=== PATIENT | female | born 1945 | race Caucasian/White ===

== ENCOUNTER 2020-06-24 19:30 | Inpatient (IN) ==
[2020-06-24 20:13] LABS: Basophils % 0.2 %; Eosinophils % 0.2 %; Hemoglobin 10.9 g/dL (11.5-15.4); Lymphocytes # 1.6 K/mcL (0.6-4.6); Lymphocytes % 19.2 %; Mean Corpuscular HGB Conc 32.1 g/dL (31.6-35.5); Mean Corpuscular Hemoglobin 29.9 pg (28.0-33.3); Mean Corpuscular Volume 93.2 fL (83.0-100.0); Mean Platelet Volume 9.1 fL (9.4-12.4); Monocytes # 0.6 K/mcL (0.0-1.3); Neutrophils # 5.9 K/mcL (1.6-8.9); Platelet Count 228 K/mcL (140-400); Red Blood Count 3.65 M/mcL (3.82-4.97); Red Cell Distribution Width 15.1 % (11.5-14.5); Segmented Neutrophils % 72.4 %; White Blood Count 8.1 K/mcL (4.3-11.1)
[2020-06-24 20:16] LABS: INR 1.1; Prothrombin Time 12.1 Seconds (9.4-12.1)
[2020-06-24 20:18] LABS: Activated Partial Thrombo Time 32.1 Seconds (26.0-36.0)
[2020-06-24 20:29] LABS: Alanine Aminotransferase 21 Units/L (7-52); Albumin 3.5 g/dL (3.5-5.7); Albumin/Globulin Ratio 1.1 (1.1-2.2); Alkaline Phosphatase 76 Units/L (34-104); Aspartate Amino Transferase 17 Units/L (13-39); BUN/Creatinine Ratio 14 (6-26); Bilirubin,Direct 0.1 mg/dL (0.0-0.2); Bilirubin,Indirect 0.3 mg/dL (0.0-1.0); Bilirubin,Total 0.4 mg/dL (0.3-1.0); Blood Urea Nitrogen 44 mg/dL (8-23); Calcium 9.9 mg/dL (8.6-10.3); Carbon Dioxide 22 mEq/L (23-29); Chloride 102 mEq/L (98-107); Globulin 3.1 g/dL (2.4-3.5); Glucose 151 mg/dL (70-105); Lipase 24 Units/L (11-82); Osmolality,Calculated 294 (280-300); Potassium 4.5 mEq/L (3.5-5.1); Sodium 135 mEq/L (136-145); Total Protein 6.6 g/dL (6.4-8.9); eGFR For African Americans 17 (> 60); eGFR For Non-African Americans 14 (> 60)
[2020-06-24 21:18] LABS: Amorphous Sediment,Urine Few per hpf (None-Few); Bacteria,Urine Moderate per hpf (None-Few); Bilirubin,Urine Negative (Negative); Blood,Urine Negative (Negative); Clarity,Urine Turbid (Clear); Color,Urine Light-Yellow (Yellow); Glucose,Urine (UA) Normal (Normal); Ketones,Urine Negative (Negative); Leukocyte Esterase,Urine Moderate (Negative); Nitrite,Urine Negative (Negative); PH,Urine 5.5 pH Units (5.0-8.0); Protein,Urine 50 mg/dL (Neg-Trace); RBC,Urine 0-3 per hpf (0-3); Specific Gravity,Urine 1.013 (1.010-1.025); Squamous Epithelial Cell,Urine Few per hpf (None-Few); Urobilinogen,Urine Normal (Normal)
[2020-06-24 21:44] LABS: Troponin I < 0.03 ng/mL (< 0.04)
[2020-06-24] MEDS ORDERED: Piperacillin/Tazobactam 3.375 GM in 0.9 % Sodium Chloride Mini Bag 100 ML IVPB ONE (22:15)
[2020-06-24] MEDS ORDERED: Pantoprazole 40 MG VIAL IVP ONE (22:34)
[2020-06-24] MEDS ORDERED: 0.9 % Sodium Chloride 1,000 ML IVC ONE (22:38)
[2020-06-25 00:48] LABS: Adenovirus Not Detected (Not Detect); Coronavirus 229E Not Detected (Not Detect); Coronavirus HKU1 Not Detected (Not Detect); Coronavirus NL63 Not Detected (Not Detect); Coronavirus OC43 Not Detected (Not Detect)
[2020-06-25 00:49] LABS: Bordetella Pertussis Not Detected (Not Detect); Chlamydophila pneumoniae Not Detected (Not Detect); Human Metapneumovirus Not Detected (Not Detect); Human Rhinovirus/Enterovirus Not Detected (Not Detect); Influenza A Subtype 2009 H1 Not Detected (Not Detect); Influenza B Not Detected (Not Detect); Mycoplasma pneumoniae Not Detected (Not Detect); Parainfluenza Virus 1 Not Detected (Not Detect); Parainfluenza Virus 2 Not Detected (Not Detect); Parainfluenza Virus 3 Not Detected (Not Detect); Parainfluenza Virus 4 Not Detected (Not Detect); Respiratory Syncytial Virus Not Detected (Not Detect)
[2020-06-25 01:07] LABS: Adenovirus F 40/41 PCR Not detected (Not detect); Astrovirus PCR Not detected (Not detect); C.difficile Toxin A/B Gene PCR Not detected (Not detect); Campylobacter by PCR Not detected (Not detect); Cryptosporidium by PCR Not detected (Not detect); Cyclospora cayetanensis PCR Not detected (Not detect); E. coli O157 by PCR Not detected (Not detect); Entamoeba histolytica PCR Not detected (Not detect); Enteroaggregative E.coli(EAEC) Not detected (Not detect); Enteropathogenic E.coli(EPEC) Not detected (Not detect); Enterotoxigenic E.coli (ETEC) Not detected (Not detect); Giardia lamblia PCR Not detected (Not detect); Norovirus GI/GII PCR Not detected (Not detect); Plesiomonas shigelloides PCR Not detected (Not detect); Rotavirus A PCR Not detected (Not detect); Salmonella PCR Not detected (Not detect); Sapovirus PCR Not detected (Not detect); Shig/EnteroinvasiveE coli EIEC Not detected (Not detect); Shigalike tox-prod E coli STEC Not detected (Not detect); Vibrio PCR Not detected (Not detect); Vibrio cholerae PCR Not detected (Not detect); Yersinia enterocolitica PCR Not detected (Not detect)
[2020-06-25] MEDS ORDERED: Naloxone 0.4 MG/ML INJ IVP PRN (01:17)
[2020-06-25] MEDS: 0.9 % Sodium Chloride 1,000 ML IVC SCH ×3 (02:23→19:39)
[2020-06-25 05:39] LABS: Potassium 5.1 mEq/L (3.5-5.1)
[2020-06-25 05:40] LABS: Albumin 2.8 g/dL (3.5-5.7); Albumin/Globulin Ratio 1.1 (1.1-2.2); Bilirubin,Total 0.5 mg/dL (0.3-1.0); Globulin 2.5 g/dL (2.4-3.5); Total Protein 5.3 g/dL (6.4-8.9)
[2020-06-25 06:47] LABS: Basophils % 0.3 %; Eosinophils % 0.5 %; Hematocrit 29.5 % (35.3-44.9); Hemoglobin 9.7 g/dL (11.5-15.4); Immature Granulocytes % 0.8 % (0-4); Lymphocytes # 1.3 K/mcL (0.6-4.6); Lymphocytes % 19.6 %; Mean Corpuscular HGB Conc 32.9 g/dL (31.6-35.5); Mean Corpuscular Hemoglobin 30.2 pg (28.0-33.3); Mean Corpuscular Volume 91.9 fL (83.0-100.0); Monocytes # 0.5 K/mcL (0.0-1.3); Monocytes % 7.5 %; Neutrophils # 4.7 K/mcL (1.6-8.9); Platelet Count 204 K/mcL (140-400); Red Blood Count 3.21 M/mcL (3.82-4.97); Red Cell Distribution Width 15.2 % (11.5-14.5); Segmented Neutrophils % 71.3 %; White Blood Count 6.6 K/mcL (4.3-11.1)
[2020-06-25] MEDS ORDERED: Dextrose Gel 15 GM/37.5 ML TUBE PO PRN ×2 (07:43)
[2020-06-25] MEDS ORDERED: *HR* Dextrose 50 % in Water (Vial) 50 ML VIAL IVP PRN (07:43)
[2020-06-25] MEDS ORDERED: D5% in Water 1,000 ML IVC PRN (07:43)
[2020-06-25] MEDS ORDERED: Piperacillin/Tazobactam 3.375 GM in 0.9 % Sodium Chloride Mini Bag 100 ML IVPB SCH ×2 (08:00→10:00)
[2020-06-25] MEDS ORDERED: Aspirin 81 MG TAB.CHEW PO SCH (09:00)
[2020-06-25] MEDS: Gabapentin 100 MG CAPSULE PO SCH (09:28)
[2020-06-25] MEDS: cefTRIAXone 1,000 MG in Water for inj. (sterile) 10 ML IVP SCH (09:28)
[2020-06-25] MEDS: Verapamil ER (24 HR) 180 MG TABLET.ER PO SCH (09:28)
[2020-06-25 10:02] LABS: Folate > 22.3 ng/mL (3.0-16.0); Vitamin B12 591 pg/mL (250-1100)
[2020-06-25 11:50] LABS: Bacteria,Urine Few per hpf (None-Few); Bilirubin,Urine Negative (Negative); Blood,Urine Negative (Negative); Clarity,Urine Clear (Clear); Color,Urine Light-Yellow (Yellow); Glucose,Urine (UA) Normal (Normal); Ketones,Urine Negative (Negative); Leukocyte Esterase,Urine Trace (Negative); Mucus,Urine Few per lpf (None-Few); Nitrite,Urine Negative (Negative); Protein,Urine 30 mg/dL (Neg-Trace); RBC,Urine 0-3 per hpf (0-3); Sodium, Urine 59.2 mEq/L; Specific Gravity,Urine 1.011 (1.010-1.025); Squamous Epithelial Cell,Urine Few per hpf (None-Few); Urobilinogen,Urine Normal (Normal)
[2020-06-25] MEDS ORDERED: Insulin LISPRO 300 UNITS/3 ML VIAL SQ SCH (12:00)
[2020-06-25 12:15] LABS: Thyroid Stimulating Hormone 0.848 mcIU/mL (0.340-5.600)
[2020-06-25] MEDS: Insulin LISPRO 300 UNITS/3 ML VIAL SQ SCH ×2 (12:31→17:36)
[2020-06-25 14:40] LABS: Hematocrit 31.6 % (35.3-44.9); Hemoglobin 9.9 g/dL (11.5-15.4)
[2020-06-25] MEDS: Iron Sucrose Complex 200 MG in 0.9 % Sodium Chloride 100 ML IVPB SCH (17:36)
[2020-06-25] MEDS: Pantoprazole 40 MG VIAL IVP SCH (17:37)
[2020-06-25] MEDS ORDERED: NON-FORMULARY MEDICATION 1 EACH EACH (Ezetimibe [Zetia] 10 MG) PO SCH (21:00)
[2020-06-26 01:16] LABS: Acinetobacter baumannii by PCR Not Detected (Not Detect); Candida albicans by PCR Not Detected (Not Detect); Candida glabrata by PCR Not Detected (Not Detect); Candida krusei by PCR Not Detected (Not Detect); Candida parapsilosis by PCR Not Detected (Not Detect); Candida tropicalis by PCR Not Detected (Not Detect); Enterobacter cloacae Cmplx PCR Not Detected (Not Detect); Enterobacteriaceae by PCR Not Detected (Not Detect); Enterococcus by PCR Not Detected (Not Detect); Escherichia coli by PCR Not Detected (Not Detect); Klebsiella oxytoca by PCR Not Detected (Not Detect); Klebsiella pneumoniae by PCR Not Detected (Not Detect); Proteus by PCR Not Detected (Not Detect); Pseudomonas aeruginosa by PCR Not Detected (Not Detect); Serratia marcescens by PCR Not Detected (Not Detect); Staphylococcus aureus by PCR Not Detected (Not Detect); Staphylococcus by PCR DETECTED (Not Detect); Streptococcus agalactiae(B)PCR Not Detected (Not Detect); Streptococcus by PCR Not Detected (Not Detect); Streptococcus pneumoniae PCR Not Detected (Not Detect); Streptococcus pyogenes (A) PCR Not Detected (Not Detect); mecA Methicillin-Resist Gene Not Detected (Not Detect)
[2020-06-26 01:22] LABS: Basophils % 0.6 %; Eosinophils # 0.1 K/mcL (0.0-0.6); Eosinophils % 1.4 %; Hemoglobin 9.4 g/dL (11.5-15.4); Immature Granulocytes % 1.4 % (0-4); Lymphocytes # 1.2 K/mcL (0.6-4.6); Lymphocytes % 23.2 %; Mean Corpuscular HGB Conc 32.4 g/dL (31.6-35.5); Mean Corpuscular Hemoglobin 30.6 pg (28.0-33.3); Mean Corpuscular Volume 94.5 fL (83.0-100.0); Monocytes # 0.4 K/mcL (0.0-1.3); Monocytes % 8.5 %; Neutrophils # 3.4 K/mcL (1.6-8.9); Platelet Count 214 K/mcL (140-400); Red Blood Count 3.07 M/mcL (3.82-4.97); Red Cell Distribution Width 14.9 % (11.5-14.5); Segmented Neutrophils % 64.9 %; White Blood Count 5.2 K/mcL (4.3-11.1)
[2020-06-26 01:49] LABS: Calcium 8.6 mg/dL (8.6-10.3); Potassium 3.8 mEq/L (3.5-5.1)
[2020-06-26] MEDS: Pantoprazole 40 MG VIAL IVP SCH (06:02)
[2020-06-26] MEDS: Insulin LISPRO 300 UNITS/3 ML VIAL SQ SCH ×3 (08:38→17:22)
[2020-06-26] MEDS: cefTRIAXone 1,000 MG in Water for inj. (sterile) 10 ML IVP SCH (09:48)
[2020-06-26] MEDS: Gabapentin 100 MG CAPSULE PO SCH (09:48)
[2020-06-26] MEDS: Verapamil ER (24 HR) 180 MG TABLET.ER PO SCH (09:48)
[2020-06-26] MEDS: Iron Sucrose Complex 200 MG in 0.9 % Sodium Chloride 100 ML IVPB SCH (09:49)
[2020-06-26] MEDS: Ondansetron 4 MG/2 ML VIAL IVP PRN (09:51)
[2020-06-26] MEDS ORDERED: Albumin 25% 25gram/100mL 25 GM/100 ML IV.SOLN IVPB ONE (12:32)
[2020-06-26] MEDS ORDERED: Furosemide 40 MG/4 ML VIAL IVP ONE ×2 (12:33→19:45)
[2020-06-26] MEDS ORDERED: Ondansetron ODT 4 MG TAB.RAPDIS SL ONE (17:28)
[2020-06-27] MEDS: *HR* LORazepam 0.5 MG TABLET PO PRN ×2 (01:57→21:22)
[2020-06-27 02:26] LABS: Hematocrit 28.3 % (35.3-44.9); Hemoglobin 8.8 g/dL (11.5-15.4); Mean Corpuscular HGB Conc 31.1 g/dL (31.6-35.5); Mean Corpuscular Hemoglobin 29.2 pg (28.0-33.3); Mean Platelet Volume 8.8 fL (9.4-12.4); Platelet Count 202 K/mcL (140-400); Red Blood Count 3.01 M/mcL (3.82-4.97); Red Cell Distribution Width 14.9 % (11.5-14.5); White Blood Count 4.4 K/mcL (4.3-11.1)
[2020-06-27 02:45] LABS: Magnesium 1.2 mg/dL (1.6-2.6); Potassium 3.5 mEq/L (3.5-5.1)
[2020-06-27] MEDS: Ondansetron 4 MG/2 ML VIAL IVP PRN (06:03)
[2020-06-27] MEDS: Verapamil ER (24 HR) 180 MG TABLET.ER PO SCH (09:42)
[2020-06-27] MEDS: tiZANidine 4 MG TABLET PO SCH (09:42)
[2020-06-27] MEDS: Gabapentin 100 MG CAPSULE PO SCH (09:42)
[2020-06-27] MEDS: cefTRIAXone 1,000 MG in Water for inj. (sterile) 10 ML IVP SCH (09:43)
[2020-06-27] MEDS: Iron Sucrose Complex 200 MG in 0.9 % Sodium Chloride 100 ML IVPB SCH (09:43)
[2020-06-27] MEDS: Insulin LISPRO 300 UNITS/3 ML VIAL SQ SCH ×3 (09:55→17:49)
[2020-06-27] MEDS: 0.9 % Sodium Chloride 1,000 ML IVC SCH ×2 (21:49→21:50)
[2020-06-28] MEDS ORDERED: polyethylene glycoL 3350 17 GM POWD.PACK PO SCH (10:30)
[2020-06-28] MEDS: Iron Sucrose Complex 200 MG in 0.9 % Sodium Chloride 100 ML IVPB SCH (10:51)
[2020-06-28] MEDS: Gabapentin 100 MG CAPSULE PO SCH (10:52)
[2020-06-28] MEDS: cefTRIAXone 1,000 MG in Water for inj. (sterile) 10 ML IVP SCH (10:52)
[2020-06-28] MEDS: tiZANidine 4 MG TABLET PO SCH (10:52)
[2020-06-28] MEDS: Verapamil ER (24 HR) 180 MG TABLET.ER PO SCH (10:52)
[2020-06-28] MEDS: Insulin LISPRO 300 UNITS/3 ML VIAL SQ SCH ×3 (10:53→17:07)
[2020-06-28] MEDS: Ondansetron 4 MG/2 ML VIAL IVP PRN (11:13)
[2020-06-28 11:15] LABS: Basophils % 0.6 %; Eosinophils # 0.1 K/mcL (0.0-0.6); Eosinophils % 1.2 %; Hematocrit 32.4 % (35.3-44.9); Immature Granulocytes % 3.9 % (0-4); Lymphocytes # 1.2 K/mcL (0.6-4.6); Lymphocytes % 25.1 %; Mean Corpuscular HGB Conc 32.1 g/dL (31.6-35.5); Mean Corpuscular Hemoglobin 30.4 pg (28.0-33.3); Mean Corpuscular Volume 94.7 fL (83.0-100.0); Mean Platelet Volume 8.7 fL (9.4-12.4); Monocytes # 0.4 K/mcL (0.0-1.3); Monocytes % 7.7 %; Platelet Count 251 K/mcL (140-400); Red Blood Count 3.42 M/mcL (3.82-4.97); Segmented Neutrophils % 61.5 %; White Blood Count 4.8 K/mcL (4.3-11.1)
[2020-06-28 11:16] LABS: Hemoglobin 10.4 g/dL (11.5-15.4)
[2020-06-28 11:42] LABS: Calcium 9.2 mg/dL (8.6-10.3); Magnesium 1.4 mg/dL (1.6-2.6); Potassium 3.8 mEq/L (3.5-5.1)
[2020-06-28] MEDS: *HR* LORazepam 0.5 MG TABLET PO PRN (21:39)
[2020-06-29] MEDS: Ondansetron 4 MG/2 ML VIAL IVP PRN (04:59)
[2020-06-29 06:47] VITALS: BP 131/77
[2020-06-29] MEDS: Gabapentin 100 MG CAPSULE PO SCH (08:05)
[2020-06-29] MEDS: tiZANidine 4 MG TABLET PO SCH (08:05)
[2020-06-29] MEDS: Iron Sucrose Complex 200 MG in 0.9 % Sodium Chloride 100 ML IVPB SCH (08:05)
[2020-06-29] MEDS: Verapamil ER (24 HR) 180 MG TABLET.ER PO SCH (08:05)
[2020-06-29] MEDS: cefTRIAXone 1,000 MG in Water for inj. (sterile) 10 ML IVP SCH (08:06)
[2020-06-29] MEDS: Insulin LISPRO 300 UNITS/3 ML VIAL SQ SCH (08:07)
== END 2020-06-29 11:37 | disposition home or self-care (01) | DRG 684 ==
LOC: EMEROOARM 19:30 → 2ANU 19:30 → SUATTDRO 06-25 00:50 → 2ANU 06-25 01:43
PROVIDERS: ADMIT Student in an Organized Health Care Education/Training Program; ATTEND Internal Medicine